=== PATIENT | male | born 1980 | race Caucasian/White ===

== ENCOUNTER 2018-06-30 17:53 | Emergency (ER) | payer OTHER ==
[~2018-06-30] VITALS: Ht 175.3 cm; Wt 56.7 kg
[~2018-06-30 17:53] MED LIST: DIVA250EC
[2018-06-30] MEDS ORDERED: IBUP800 PO (21:06)
[2018-06-30] MEDS ORDERED: Cephalexin500 M1 PO (21:06)
[2018-06-30] MEDS ORDERED: Robaxin500 MG PO (21:06)
== END 2018-06-30 21:17 | disposition home or self-care (01) ==
LOC: ER 17:53
DX: S16.1XXA Strain of muscle, fascia and tendon at neck level, initial encounter (principal); L03.113 Cellulitis of right upper limb; M54.9 Dorsalgia, unspecified; M79.641 Pain in right hand; J44.9 Chronic obstructive pulmonary disease, unspecified; M41.9 Scoliosis, unspecified; F17.210 Nicotine dependence, cigarettes, uncomplicated; Y04.0XXA Assault by unarmed brawl or fight, initial encounter
CPT/HCPCS: 72040; 73130; 99283-25